=== PATIENT | male | born 2000 | race African-American/Black ===

== ENCOUNTER 2021-08-03 09:15 | Outpatient (CLI) | payer OTHER ==
--- NOTE | 2021-08-03 11:33 | XRAY Report ---
PROCEDURE: Foot 3 View LT INDICATIONS: LEFT FOOT PAIN TECHNIQUE: 3 views of the foot were acquired. COMPARISON: None FINDINGS: Bones: There is a moderately displaced comminuted fracture of the proximal fifth metatarsal. No suspi cious bony lesions. Soft tissues: No tibiotalar joint effusion. Achilles tendon appears normal. IMPRESSION: Proximal fifth metatarsal fracture. Reviewed by: Anand Tomas MD on 08/03/2021 11:31 AM [facility] Approved by: Anand Tomas MD on 08/03/2021 11:31 AM [facility] Station ID: [id number]
== END 2021-08-03 23:59 | disposition home or self-care (01) ==
LOC: DI.WOS 09:15
PROVIDERS: ATTEND Orthopaedic Surgery
DX: S92.352A Displaced fracture of fifth metatarsal bone, left foot, initial encounter for closed fracture (principal)